=== PATIENT | female | born 1985 | race Caucasian/White ===

== ENCOUNTER 2017-06-24 07:17 | Inpatient (IN) | payer OTHER ==
[~2017-06-24] VITALS: Ht 160 cm; Wt 95.5 kg
[2017-06-24 07:48] VITALS: BP 116/60; PULSE 69; Ht 160 cm; Wt 95.5 kg
[2017-06-24] MEDS ORDERED: PRENAT PO (07:50)
[2017-06-24] MEDS ORDERED: LACTATED RINGER'S 1,000 ML IV SCH (07:59)
[2017-06-24] MEDS ORDERED: MISOPROSTOL 200 MCG TAB PR PRN ×2 (08:00→13:00)
[2017-06-24] MEDS ORDERED: BUTORPHANOL 2 MG INJ IV PRN (08:00)
[2017-06-24] MEDS ORDERED: MINERAL OIL LIGHT 10 ML VIAL TOP ONE (08:00)
[2017-06-24] MEDS ORDERED: OXYTOCIN 30 UNITS/LR 500 ML IV PRN ×2 (08:00→13:00)
[2017-06-24] MEDS ORDERED: IBUPROFEN 600 MG TAB PO PRN (08:00)
[2017-06-24] MEDS ORDERED: METHYLERGONOVINE 0.2 MG INJ IM PRN ×2 (08:00→13:00)
[2017-06-24] MEDS ORDERED: OXYTOCIN 30 UNITS/LR 500 ML IV SCH ×3 (08:00→10:30)
[2017-06-24] MEDS ORDERED: LIDOCAINE 1% (MPF) 30 ML INJ INJ PRN (08:00)
[2017-06-24] MEDS ORDERED: CARBOPROST 250 MCG INJ IM PRN ×2 (08:00→13:00)
[2017-06-24] MEDS ORDERED: LACTATED RINGER'S 1,000 ML IV PRN (08:30)
[2017-06-24 11:47] VITALS: BP 96/51; PULSE 58; RESP 18
[2017-06-24 11:50] LABS: BASOPHILS % 0.3 % (0.0-2.0); EOSINOPHILS % 0.1 % (0.0-7.0); HEMATOCRIT 32.6 % (37.0-47.0); HEMOGLOBIN 10.8 g/dl (12.0-16.0); LYMPHOCYTES # 1.8 10^3/ul (0.8-2.9); LYMPHOCYTES % 15.1 % (15.0-51.0); MEAN CORPUSCULAR HEMOGLOBIN 26.2 pg (29.0-33.0); MEAN CORPUSCULAR HGB CONC 33.1 g/dl (32.0-37.0); MEAN CORPUSCULAR VOLUME 78.9 fl (82.0-101.0); MEAN PLATELET VOLUME 10.5 fl (7.4-10.4); MONOCYTE # 0.6 10^3/ul (0.3-0.9); MONOCYTES % 4.9 % (0.0-11.0); NEUTROPHILS % 79.3 % (39.0-77.0); PLATELET COUNT 407 10^3/UL (140-415); RED BLOOD COUNT 4.13 10^6/ul (4.20-5.40); RED CELL DISTRIBUTION WIDTH 14.1 % (11.5-14.5); WHITE BLOOD COUNT 11.8 10^3/ul (4.8-10.8)
[2017-06-24 12:02] LABS: INR 1.07; PROTIME 13.9 Sec (12.2-14.2); PT RATIO 1.1
[2017-06-24 12:03] LABS: PARTIAL THROMBOPLASTIN TIME 33.7 Sec (25.0-35.0)
[2017-06-24 12:15] VITALS: BP 98/53; PULSE 59; RESP 20
--- NOTE | 2017-06-24 12:44 | HP ---
Date/Time of Note Date/Time of Note DATE: 06/24/17 TIME: 12:37 OB - History Hx of Present Free Text/Dictation 31 years old female 3 para 2 EDC June 26, 2007 admitted to [facility] in active labor pelvic examination on admission cervical dilatation 5-6 cm 90% effacement vertex at -1 station contraction every 3-5 minute patient transferred from triage to the labor and delivery room for delivery Chief Complaint: Labor contraction Estimated Due Date: Jun 26, 2017 : 3 Para: 2 Care: Good Care Ultrasounds: Normal mid trimester US Medical Complications: None Past Family/Social History * Past Medical, Surgical, Family and Obstetric Histories reviewed from chart. Rubella: immune RPR/VDRL: Negative GBS Status: Negative HBsAG: Negative OB Admission Exam Vital Signs Vital Signs Vital Signs Date Time Temp Pulse Resp B/P Pulse Ox O2 Delivery O2 Flow Rate FiO2 06/24/17 07:48 98.6 69 116/60 Physical Exam HEENT: WNL Heart: Rhythm Normal Lungs: Clear, Equal Abdomen: WNL Extremities: Normal Reflexes: Normal Cervical Dilatation: 6cm Effacement: Other (90%) Station: -1 Membranes: Ruptured Heart Rate: 130's Accelerations: Accelerations Present Decelerations: No Decelerations Varibility: Moderate Contractions on Admission: < 5 Minutes Apart Intensity: Moderate Last 72 hours Lab Results CBC & BMP 06/24/17 08:10 OB Assessment/Plan Reason for admission: other (Years old female EDC June 26, 2017 admitted in active labor pelvic exam on admission cervix 6 cm dilated 90% vertex -1 patient referred from triage to L&D expecting management for possible normal vaginal delivery) Plan: Expectant Management CHEIKH SALAZAR MD Jun 24, 2017 12:44
--- NOTE | 2017-06-24 12:47 | LDN ---
Date/Time of Note Date/Time of Note DATE: 06/24/17 TIME: 12:44 Delivery Summary Weeks of Gestation 39 weeks 5 days Placenta Delivered: Spontaneously Meconium: none Episiotomy: No Laceration repair: No laceration Anesthesia type: None Sponge & Needle done & correct: Yes All needle counts correct: Yes Any foreign bodies felt in the: No Problems: CHEIKH SALAZAR MD Jun 24, 2017 12:47
--- NOTE | 2017-06-24 12:51 | PD.PPDC ---
WAXER Discharge Instruction Condition Patient Condition: Good Diet Diet: Resume Regular Diet Activity/Restrictions Activity: Normal Activity May Shower Restrictions: No Exercising No Lifting No Driving No Sexual Activity Nothing in the Vagina No [place] No Tampons, douche Follow-up Follow-up with Physician: 2, Week/Weeks Provider Information: Appointment clinic in 2 weeks Return to clinic for [employer] Instructions: Fever greater than 101 Chills Worsening abdominal pain Excessive Vaginal Bleeding More than 2 pads per hour Unable to tolerate diet OB Instructions: Breast Tenderness Depression Blurried Vision Headache Surgical Instructions: Incisional Drainage Incisional Redness CHEIKH SALAZAR MD Jun 24, 2017 12:51
[2017-06-24] MEDS ORDERED: LACTATED RINGER'S 1,000 ML IV* SCH (12:59)
[2017-06-24] MEDS ORDERED: DIBUCAINE 1% 30 GM OINT PR PRN (13:00)
[2017-06-24] MEDS ORDERED: WITCH HAZEL/GLYCERIN PAD PR PRN (13:00)
[2017-06-24] MEDS ORDERED: ONDANSETRON 4 MG INJ IV PRN (13:00)
[2017-06-24] MEDS ORDERED: METHYLERGONOVINE 0.2 MG TAB PO PRN (13:00)
[2017-06-24] MEDS ORDERED: ACETAMINOPHEN 325 MG TAB PO PRN (13:00)
[2017-06-24] MEDS ORDERED: BENZOCAINE 20% 56 ML SPRAY TOP PRN (13:00)
[2017-06-24] MEDS ORDERED: OXYCODONE/ASPIRIN (4.88/325) TAB PO PRN ×2 (13:00)
[2017-06-24] MEDS ORDERED: LANOLIN 7 GM TUBE TOP PRN (13:00)
[2017-06-24] MEDS ORDERED: HYDROCODONE/APAP (5/325) TAB PO PRN ×2 (13:00)
[2017-06-24 16:00] VITALS: BP 95/58; PULSE 68; RESP 18
[2017-06-24] MEDS: OXYTOCIN 30 UNITS/LR 500 ML IV SCH (17:14)
[2017-06-24] MEDS: IBUPROFEN 600 MG TAB PO SCH (17:16)
[2017-06-24 20:00] VITALS: BP 95/50; PULSE 65; RESP 18
[2017-06-24] MEDS: SENNA/DOCUSATE NA (8.6MG/50MG) TAB PO SCH (21:26)
[2017-06-25 00:20] VITALS: BP 92/55; PULSE 74; RESP 19
[2017-06-25] MEDS: IBUPROFEN 600 MG TAB PO SCH ×5 (00:20→23:33)
[2017-06-25 04:00] VITALS: BP 107/61; PULSE 60; RESP 18
[2017-06-25 08:45] VITALS: BP 84/45; PULSE 63; RESP 18
[2017-06-25] MEDS: SENNA/DOCUSATE NA (8.6MG/50MG) TAB PO SCH ×2 (08:58→20:47)
[2017-06-25] MEDS: PRENATAL VITAMIN PO SCH (08:58)
[2017-06-25] MEDS: OXYTOCIN 30 UNITS/LR 500 ML IV SCH (09:00)
[2017-06-25 09:13] LABS: BASOPHIL # 0.1 10^3/ul (0.0-0.1); BASOPHILS % 0.5 % (0.0-2.0); EOSINOPHILS % 0.2 % (0.0-7.0); HEMATOCRIT 29.4 % (37.0-47.0); HEMOGLOBIN 9.6 g/dl (12.0-16.0); LYMPHOCYTES # 2.8 10^3/ul (0.8-2.9); LYMPHOCYTES % 25.1 % (15.0-51.0); MEAN CORPUSCULAR HEMOGLOBIN 26.4 pg (29.0-33.0); MEAN CORPUSCULAR HGB CONC 32.7 g/dl (32.0-37.0); MEAN PLATELET VOLUME 10.5 fl (7.4-10.4); MONOCYTE # 0.7 10^3/ul (0.3-0.9); MONOCYTES % 6.6 % (0.0-11.0); NEUTROPHILS % 67.2 % (39.0-77.0); PLATELET COUNT 358 10^3/UL (140-415); RED BLOOD COUNT 3.63 10^6/ul (4.20-5.40); RED CELL DISTRIBUTION WIDTH 13.7 % (11.5-14.5)
[2017-06-25 16:30] VITALS: BP 97/55; PULSE 88; RESP 18
[2017-06-25 20:00] VITALS: BP 99/58; PULSE 57; RESP 18
[2017-06-26 04:00] VITALS: BP 97/59; PULSE 54; RESP 18
[2017-06-26] MEDS: IBUPROFEN 600 MG TAB PO SCH ×2 (05:31→12:34)
[2017-06-26 08:00] VITALS: BP 95/60; PULSE 57; RESP 16
[2017-06-26] MEDS ORDERED: MEASLES,MUMPS,RUBELLA VACCINE INJ SC* ONE (09:00)
[2017-06-26] MEDS: PRENATAL VITAMIN PO SCH (11:00)
[2017-06-26] MEDS: SENNA/DOCUSATE NA (8.6MG/50MG) TAB PO SCH (11:01)
--- NOTE | 2017-06-26 12:27 | DS ---
Date/Time of Note Date/Time of Note DATE: 06/26/17 TIME: 12:24 Obstetrical Discharge Record Final Diagnosis Final Diagnosis: Term delivered Vaginal Delivery Obstetrical Delivery: Spontaneous Condition on Discharge Physical Assessment Last Vitals: Post day 1 Doing Well Afebrile Ambulatory Chest Clear Breasts are soft , Nipples are intact Abdomen is soft Fundus is firm Moderate amount of lochia No calf tenderness No ankle edema Current Medications Medications (Trade) Dose Ordered Sig/Froy Route PRN Reason Start Time Stop Time Status Last Admin Dose Admin Lactated Ringer's (Lr) 1,000 ml @ 125 mls/hr Q8H IV 06/24/17 07:59 06/24/17 13:02 DC 06/24/17 08:21 Butorphanol Tartrate (Stadol) 2 mg Q2H PRN IV PAIN 06/24/17 08:00 06/24/17 13:02 DC 06/24/17 09:05 Lidocaine 30 ml 30 ml ONCE PRN INJ EPISIOTOMY/TEARING 06/24/17 08:00 06/24/17 13:02 DC Oxytocin/Lactated Ringer's 500 ml @ 125 mls/hr ONCE -MAY REPEAT X1 IV 06/24/17 08:00 06/24/17 13:02 DC 06/24/17 10:51 Oxytocin/Lactated Ringer's 500 ml @ 125 mls/hr ONCE IV 06/24/17 08:00 06/24/17 13:02 DC Ibuprofen 600 mg 600 mg ONCE PRN PO Mild Pain (Pain Score 1-3) 06/24/17 08:00 06/24/17 13:02 DC Lactated Ringer's 1,000 ml @ 2,000 mls/hr Q30M PRN IV PRE-EPIDURAL BOLUS 06/24/17 08:30 06/24/17 13:02 DC Oxytocin/Lactated Ringer's 500 ml @ 0 mls/hr ONCE PRN IV For Hemorrhage Management 06/24/17 08:00 06/24/17 13:02 DC Methylergonovine Maleate (Methergine) 0.2 mg ONCE PRN IM VAGINAL BLEEDING 06/24/17 08:00 06/24/17 13:02 DC Carboprost Tromethamine (Hemabate) 250 mcg ONCE PRN IM VAGINAL BLEEDING 06/24/17 08:00 06/24/17 13:02 DC Misoprostol (Cytotec) 1,000 mcg ONCE PRN OK VAGINAL BLEEDING 06/24/17 08:00 06/24/17 13:02 DC Mineral Oil 20 ml 20 ml ONCE ONCE TOP 06/24/17 08:00 06/24/17 08:01 DC Oxytocin/Lactated Ringer's 500 ml @ 0 mls/hr TITRATE IV 06/24/17 10:30 06/24/17 13:02 DC 06/24/17 10:11 Oxytocin/Lactated Ringer's 500 ml @ 125 mls/hr Q4H IV 06/24/17 12:59 06/24/17 20:58 DC 06/24/17 17:14 Lactated Ringer's (Lr) 1,000 ml @ 125 mls/hr Q8H IV* 06/24/17 12:59 06/25/17 09:00 DC 06/24/17 21:26 Methylergonovine Maleate (Methergine) 0.2 mg Q6H PRN PO VAGINAL BLEEDING 06/24/17 13:00 Ibuprofen (Motrin) 600 mg Q6 PO 06/24/17 18:00 06/26/17 05:31 Acetaminophen (Tylenol Tab) 650 mg Q4H PRN PO PAIN LEVEL 1-5 06/24/17 13:00 Acetaminophen/ Hydrocodone Bitart (Jermyn (5/325)) 1 tab Q4H PRN PO PAIN LEVEL 1-5 06/24/17 13:00 Acetaminophen/ Hydrocodone Bitart (Jermyn (5/325)) 2 tab Q4H PRN PO PAIN LEVEL 6-10 06/24/17 13:00 Oxycodone/Aspirin (Percodan) 1 tab Q3H PRN PO PAIN LEVEL 1-5 06/24/17 13:00 Oxycodone/Aspirin (Percodan) 2 tab Q3H PRN PO PAIN LEVEL 6-10 06/24/17 13:00 Ondansetron HCl (Zofran Inj) 4 mg Q6H PRN IV NAUSEA AND/OR VOMITING 06/24/17 13:00 Senna/Docusate Sodium (Senokot-S) 1 tab BID PO 06/24/17 21:00 06/26/17 11:01 Witch Chika/ Glycerin (Tucks Pads) 1 pad BEDSIDE MEDICATION PRN OK HEMORRHOID/EPISIOTMY PAIN 06/24/17 13:00 06/24/17 17:16 Benzocaine (Dermoplast [place]) 1 spray BEDSIDE MEDICATION PRN TOP HEMORRHOID/EPISIOTMY PAIN 06/24/17 13:00 06/24/17 17:15 Dibucaine (Nupercainal) 1 applic BEDSIDE MEDICATION PRN OK HEMORRHOID/EPISIOTMY PAIN 06/24/17 13:00 Lanolin ([id number]-E-Hzrtzr) 1 applic BEDSIDE MEDICATION PRN TOP BEDSIDE FOR BENITO TO NIPPLES 06/24/17 13:00 06/24/17 17:16 Measles/Mumps/ Rubella Vaccine Live 0.5 ml 0.5 ml ONCE ONCE SC* 06/26/17 09:00 06/26/17 09:01 DC Oxytocin/Lactated Ringer's 500 ml @ 0 mls/hr ONCE PRN IV For Hemorrhage Management 06/24/17 13:00 Methylergonovine Maleate (Methergine) 0.2 mg ONCE PRN IM VAGINAL BLEEDING 06/24/17 13:00 Carboprost Tromethamine (Hemabate) 250 mcg ONCE PRN IM VAGINAL BLEEDING 06/24/17 13:00 Misoprostol (Cytotec) 1,000 mcg ONCE PRN OK VAGINAL BLEEDING 06/24/17 13:00 Prenat Multivit/ Fish Roe Processor/Iron/Folic Ac () 1 tab DAILY PO 06/25/17 09:00 06/26/17 11:00 New born is doing well, Breast feeding We will discharge her home to be seen in the clinic Voiding: Yes Bowel Movement: Yes Breast: Soft, non-tender Fundus: Firm Patient Condition: Good MARCE JOHNSON MD Jun 26, 2017 12:27
== END 2017-06-26 18:10 | disposition home or self-care (01) | DRG 775 ==
LOC: OBT 07:17 → L-D 07:17 → OBT 08:19 → PP1 11:42
PROVIDERS: ADMIT Obstetrics & Gynecology; ATTEND Obstetrics & Gynecology
PROC: 10E0XZZ Delivery of Products of Conception, External Approach (ICD-10-PCS; principal; 2017-06-24)
DX: O80 Encounter for full-term uncomplicated delivery (principal); Z37.0 Single live birth; Z3A.39 39 weeks gestation of pregnancy
CPT/HCPCS: 85025; 85610; 85730; 86592; 86900; 86901; 87340; G0463; J0595; J2590; J7120